=== PATIENT | male | born 1950 | race Native Hawaiian/Other Pacific Islander ===

== ENCOUNTER 2018-06-18 11:27 | Outpatient (CLI) | payer OTHER, MEDICARE | END 2018-06-18 11:28 | disposition home or self-care (01) | LOC: C.RADH 11:27 | DX: Z01.818 Encounter for other preprocedural examination (principal) ==

== ENCOUNTER 2018-06-30 10:29 | Day surgery (SDC) | payer OTHER, MEDICARE ==
[2018-06-30] MEDS ORDERED: Ciprofloxacin 400mg/200ml D5W 400 MG/200 ML BAG IVPB ONE (15:10)
[2018-06-30] MEDS ORDERED: Gentamicin 80 mg in 0.9% NS 80 MG/100 ML BAG IVPB ONE ×2 (15:10→16:38)
[2018-06-30] MEDS ORDERED: cefTRIAXone 1 gm 0 GM/0 ML BAG IVPB ONE (16:15)
[2018-06-30] MEDS ORDERED: Lactated Ringer's 1,000 ML IV ONE (16:40)
[2018-06-30] MEDS ORDERED: Propofol 10 mg/ml Inj (20 ML) ONE (16:45)
[2018-06-30] MEDS ORDERED: HYDROmorphone 0.5 mg/0.5 ml ISec IVP PRN (17:04)
--- NOTE | 2018-06-30 17:21 | PCM.SURG1 ---
Surgeon's Initial Post Op Note - Surgeon's Notes Surgeon: Georgette Supervisor Inspecting: maritza Type of Anesthesia: General LMA Anesthesia Administered By: staff Pre-Operative Diagnosis: Bph/Tripathi/luts Operative Findings: BPH w high median vaughn and tripathi Post-Operative Diagnosis: same Operation Performed: TULAP Specimen/Specimens Removed: na Estimated Blood Loss: EBL {In ML}: 0 Blood Products Given: N/A Drains Used: No Drains Post-Op Condition: Good Date of Surgery/Procedure: 06/30/18 Time of Surgery/Procedure: 17:22
[2018-06-30] MEDS ORDERED: ePHEDrine 50 mg/ml Inj ONE (17:29)
[2018-06-30 18:26] VITALS: RESP 16
[2018-06-30 20:12] VITALS: BP 117/87; PULSE 71; TEMP 98; O2SAT 98
--- NOTE | 2018-07-22 01:14 | OP ---
PROCEDURE DATE: 06/30/2018 PREOPERATIVE DIAGNOSES: Benign prostatic hyperplasia, bladder outlet obstruction, and lower urinary tract symptoms. POSTOPERATIVE DIAGNOSES: Benign prostatic hyperplasia, bladder outlet obstruction, and lower urinary tract symptoms. FINDINGS: Benign prostatic hyperplasia with a high medium bar. PROCEDURE: Transurethral laser ablation of the prostate. SURGEON: Don Palomino MD DESCRIPTION OF PROCEDURE: The patient was draped and prepped in the usual manner. He was asked to sign a detailed informed consent prior to the procedure and agreed to accept the risks of the procedure. A time-out was taken according to the rules and regulations of [facility]. The patient was then cystoscoped with a laser cystoscope. The previous cystoscopic findings were confirmed. The laser element was then inserted and vaporization of the prostate was begun just distal to the bladder neck at 11 o'clock and carried down to just proximal to the verumontanum. The left lateral lobe, the right lobe, the roof of tissue and the base of tissue were all vaporized in a similar fashion. Once adequate vaporization occurred, it was observed that there was no injury to the bladder, ureteral orifices or verumontanum or external sphincter. Bladder was filled with normal saline, and #20, two-way 5 mL catheter was inserted that drained with normal saline, inflating the catheter with appropriate amount of saline. The patient was sent to recovery room in good condition. He has been advised to return to our office tomorrow for Riley catheter removal. Don Palomino MD
== END 2018-06-30 19:20 | disposition home or self-care (01) ==
LOC: C.SDS 10:29
PROVIDERS: ATTEND Urology
DX: N40.1 Benign prostatic hyperplasia with lower urinary tract symptoms (principal); N32.0 Bladder-neck obstruction
CPT/HCPCS: 52648; J0744; J1580; J7120